=== PATIENT | male | born 1980 | race Caucasian/White ===

== ENCOUNTER 2020-05-02 08:36 | Emergency (ER) | payer BC ==
[2020-05-02] MEDS: Sodium Chloride 0.9% 1,000 ML IV ONE (09:20)
[2020-05-02] MEDS: fentaNYL 100 MCG/2 ML SDV IVPUSH ONE ×2 (09:22→09:51)
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
[2020-05-02 09:53] LABS: ANION GAP 15.5 mEq/L (7-13); CHLORIDE,CL 94 mmol/L (98-107); SODIUM,NA 132 mmol/L (136-145)
[2020-05-02] MEDS: HYDROmorphone 1 MG/ML Syringe IVPUSH ONE ×2 (10:22→11:11)
[2020-05-02] MEDS: Iopamidol 612 MG/ML 100 ML Bottle IVPUSH ONE (10:49)
[2020-05-02] MEDS: Sodium Chloride 0.9% 1,000 ML IV SCH (11:12)
--- NOTE | 2020-05-02 11:14 | CT ---
PROCEDURE INFORMATION: Exam: CT Abdomen And Pelvis With Contrast Exam date and time: 05/02/2020 10:42 AM Age: 40 years old Clinical indication: Abdominal pain; Localized; Right lower quadrant (rlq); Additional info: Rlq pain, elevated wbc TECHNIQUE: Imaging protocol: Computed tomography of the abdomen and pelvis with intravenous contrast. Radiation optimization: All CT scans at this facility use at least one of these dose optimization techniques: automated exposure control; mA and/or kV adjustment per patient size (includes targeted exams where dose is matched to clinical indication); or iterative reconstruction. Contrast material: [id number]; Contrast volume: 100 ml; Contrast route: INTRAVENOUS (IV); COMPARISON: No relevant prior studies available. FINDINGS: Liver: There is a diffuse decrease in hepatic parenchymal density, consistent with moderate fatty infiltration. Gallbladder and bile ducts: Normal. No calcified stones. No ductal dilation. Pancreas: Normal. No ductal dilation. Spleen: Normal. No splenomegaly. Adrenal glands: Normal. No mass. Kidneys and ureters: Normal. No hydronephrosis. Stomach and bowel: Unremarkable. No obstruction. No mucosal thickening. Mild prominence of small bowel consistent with inflammatory reaction of appendicitis. Appendix: There is a 17 mm distended appendix with central and distal small foci of increased density compatible with debris and/or appendicolith. There is moderate right periappendiceal and distal right pericolic stranding extending into the right pelvis. Small contained collection of air (series 2, images 87-91) is consistent with a contained perforation. Intraperitoneal space: See "Appendix" finding. Vasculature: Unremarkable. No abdominal aortic aneurysm. Lymph nodes: Unremarkable. No enlarged lymph nodes. Urinary bladder: Unremarkable as visualized. Reproductive: Unremarkable as visualized. Bones/joints: Unremarkable. No acute fracture. Soft tissues: There is a 3.0 cm fat filled right inguinal hernia. Some peripheral edema extending to the inguinal hernia. The appendix does not extend to the fat filled right inguinal hernia. IMPRESSION: 1. Acute appendicitis with small contained perforation. Appendiceal debris and or appendicoliths. Moderate appendiceal inflammatory changes extending into the right pericolic gutter and superior pelvis. 2. Hepatic steatosis. 3. Right 3.0 cm fat filled inguinal hernia.
[2020-05-02] MEDS: Piperacillin/Tazobactam 3.375 GM in Sodium Chloride 0.9% 100 ML IV ONE (11:16)
== END 2020-05-02 11:42 ==
LOC: DL.ED 08:36
DX: K35.20 Acute appendicitis with generalized peritonitis, without abscess (principal); I10 Essential (primary) hypertension; G62.9 Polyneuropathy, unspecified; F32.9 Major depressive disorder, single episode, unspecified; E66.9 Obesity, unspecified; Z68.43 Body mass index [BMI] 50.0-59.9, adult; Z79.899 Other long term (current) drug therapy; Z20.828 Contact with and (suspected) exposure to other viral communicable diseases
CPT/HCPCS: 36415; 74177; 80053; 81001; 82150; 83605; 83690; 85025; 86140; 87040; 87635; 96365; 96375; 96376; 99285; J1170; J2543; J3010; J7030; J7050; Q9967; U0002

== ENCOUNTER 2020-05-06 12:40 | Emergency (ER) | payer BC ==
[2020-05-06 13:27] LABS: ANION GAP 13.2 mEq/L (7-13); CHLORIDE,CL 100 mmol/L (98-107); SODIUM,NA 138 mmol/L (136-145)
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
[2020-05-06] MEDS ORDERED: HYDROmorphone 1 MG/ML Syringe IVPUSH ONE ×2 (14:02→15:51)
[2020-05-06] MEDS ORDERED: Iopamidol 612 MG/ML 100 ML Bottle IVPUSH ONE (14:41)
--- NOTE | 2020-05-06 15:01 | CT ---
PROCEDURE INFORMATION: Exam: CT Abdomen And Pelvis With Contrast Exam date and time: 05/06/2020 2:27 PM Age: 40 years old Clinical indication: Other: Severe abdominal pain rlq, ; prior surgery; Surgery date: 3-7 days post-operative; Surgery type: Appy; Additional info: Severe abdominal pain rlq, appendectomy 05/02/2020 TECHNIQUE: Imaging protocol: Computed tomography of the abdomen and pelvis with intravenous contrast. Radiation optimization: All CT scans at this facility use at least one of these dose optimization techniques: automated exposure control; mA and/or kV adjustment per patient size (includes targeted exams where dose is matched to clinical indication); or iterative reconstruction. Contrast material: ISOVUE 300; Contrast volume: 99 ml; Contrast route: INTRAVENOUS (IV); COMPARISON: CT Abdomen Pelvis w Cont 05/02/2020 10:42 AM FINDINGS: Lungs: Mild atelectatic changes noted within the lung bases. Liver: There is a diffuse decrease in hepatic parenchymal density, consistent with mild fatty infiltration. Gallbladder and bile ducts: Normal. No calcified stones. No ductal dilation. Pancreas: Normal. No ductal dilation. Spleen: Normal. No splenomegaly. Adrenal glands: Normal. No mass. Kidneys and ureters: Normal. No hydronephrosis. Stomach and bowel: Unremarkable. No obstruction. No mucosal thickening. Appendix: A 5.6 x 5.4 cm fluid collection noted within the region of the recent right appendectomy. Surrounding inflammatory changes are present. Findings may be consistent with early abscess formation. Intraperitoneal space: Normal. No significant fluid collection. Vasculature: Unremarkable. No abdominal aortic aneurysm. Lymph nodes: Mesenteric lymphadenopathy is present measuring up to 1.1 cm. Urinary bladder: Unremarkable as visualized. Reproductive: Unremarkable as visualized. Bones/joints: Unremarkable. No acute fracture. Soft tissues: Fat filled right inguinal hernia. IMPRESSION: 1. A 5.6 x 5.4 cm fluid collection noted within the region of the recent right appendectomy. Surrounding inflammatory changes are present. Findings may be consistent with early abscess formation. 2. Mesenteric lymphadenopathy is present measuring up to 1.1 cm.
== END 2020-05-06 16:09 ==
LOC: DL.ED 12:40
DX: L02.211 Cutaneous abscess of abdominal wall (principal); I10 Essential (primary) hypertension; F32.9 Major depressive disorder, single episode, unspecified; E66.9 Obesity, unspecified; Z68.35 Body mass index [BMI] 35.0-35.9, adult; Z79.899 Other long term (current) drug therapy
CPT/HCPCS: 36415; 74177; 80053; 81001; 83605; 85025; 86140; 96374; 96376; 99285; J1170; Q9967; 99284